=== PATIENT | female | born 1990 | race Hispanic/Latino ===

== ENCOUNTER → 2017-06-16 | Day surgery (SDC) | payer BC ==
[~2017-06-16] MED LIST: FLU VACC QS2017-18 36 mo. & older 0.5 ML SYRINGE IM ONE
--- NOTE | 2017-06-16 19:22 | PRG ---
DATE OF SERVICE: 06/16/2017 TIME: 1854 TIME OF EVALUATION: 1844. LOCATION: Labor and Delivery triage. In brief, this is a patient of Dr. Dwight Gutierrez who is a 26-year-old G4, P2 with a history of a molar in 2014, who has a due date of her at 36-37 weeks with the complaint of irregular contractions. She denies vaginal bleeding or leakage of fluid. She denies any recent trauma. She denies headaches or visual changes. On review of systems, she has good movement. Six contractions have been irregular. She also states that she has had some diarrhea and loose stools but no blood in the stool. She denies gushes of fluid per vagina or any decreased movement. She does have a history of herpes, which is remote and Dr. Gutierrez has not put her on suppression therapy. REVIEW OF SYSTEMS: Complete review of systems was checked and otherwise negative unless specified in the HPI. ALLERGIES: None. SOCIAL HISTORY: Negative. MEDICATIONS: None. GYNECOLOGICAL HISTORY: Positive for herpes virus in the past (not on suppression). PHYSICAL EXAMINATION: VITAL SIGNS: Her blood pressure is 102/68, temperature is 99.4. GENERAL: Clinically, she is in no acute distress. ABDOMEN: Soft and nontender and size consistent with dates. Cervical exam is 3 cm dilated, 60% effaced, -2 station, bag of lott intact. There is no evidence of vulvovaginal lesions. On a nonstress test/ monitor, heart tones are in the 140s with moderate variability and accelerations. There are no pathological decelerations. The heart tones were reassuring. Tocodynamometer shows maybe some mild irritability, but no real contraction frequency or pattern. ASSESSMENT: 1. This is a 26-year-old G4, P2 at 36-37 weeks with lower pelvic discomfort. There is no evidence of labor at this time. 2. Due to her history of diarrhea and nausea. I have ordered a complete metabolic profile. 3. Continue nonstress testing. 4. Continue to observe for now. [facility]
[2017-06-16 19:29] LABS: #Eosinphils 0.1 thou/uL (0.0-0.7); #Lymphocytes 1.5 thou/uL (1.20-3.40); #Monocytes 0.6 thou/uL (0.11-0.59); #Neutrophils 5.3 thou/uL (1.40-6.50); %Basophils 0.3 % (0.0-1.0); %Eosinophils 1.1 % (0.0-10.0); %Lymphocytes 20.4 % (21.0-51.0); %Monocytes 7.6 % (0.0-10.0); Hematocrit 30.6 % (36.0-47.0); Mean Platelet Volume 7.1 fL (7.4-10.4); Red Blood Cell (RBC) Count 3.77 mill/uL (4.20-5.40); White Blood Cell (WBC) Count 7.5 thou/uL (4.8-10.8)
[2017-06-16 19:50] LABS: ALT (SGPT) Less than 7 U/L (8-55); AST (SGOT) 15 U/L (5-34); Alkaline Phosphatase 126 U/L (40-150); Anion Gap 13 mmol/L (10-20); BUN (Urea Nitrogen) 6 mg/dL (7.0-18.7); Bilirubin, Total 0.6 mg/dL (0.2-1.2); Calc. Creatinine Clearance 149 mL/min (70-130); Calcium 9.3 mg/dL (7.8-10.44); Carbon Dioxide 21 mmol/L (22-29); Chloride 104 mmol/L (98-107); Estimated GFR-MDRD Greater than 90; Globulin 3.9 g/dL (2.4-3.5); Protein, Total 7.4 g/dL (6.0-8.3)
--- NOTE | 2017-06-16 21:14 | PRG ---
DATE OF SERVICE: 06/16/2017 TIME: 2054 SUBJECTIVE: In brief, the patient has been checked after 2 hours and remained unchanged at 3 cm. S he is still in the latent phase of labor. As there is no evidence of maternal or compromise, with reactive nonstress test, and no evidence of ruptured membranes, we will discharge her home with a diagnosis of latent labor. She is to follow up in 24 hours with her primary physician who is Dr. Dwight Gutierrez for followup. She was told that if labor continues or if she has evidence of ruptured membranes, she is to return to labor and delivery. DIAGNOSES: 1. Threatened labor. 2. Latent labor. 3. A 36-37 week gestation.
== END ==
LOC: L&D/OP 17:23
PROVIDERS: ATTEND Family Medicine
DX: O47.1 False labor at or after 37 completed weeks of gestation (principal); Z3A.37 37 weeks gestation of pregnancy; Z86.19 Personal history of other infectious and parasitic diseases
CPT/HCPCS: 36415; 80053; 85025; 86780; 87389